=== PATIENT | male | born 1995 | race African-American/Black ===

== ENCOUNTER 2017-08-15 14:17 | Inpatient (IN) ==
[2017-08-15] MEDS ORDERED: DIPH/TET/ACEL PERT BOOSTER VACCINE 0.5 ML VIAL IM ONE ×2 (14:20→14:43)
[2017-08-15 14:39] LABS: Basophils # 0.1 10*3/uL (0.0-0.2); Basophils % 0.5 % (0.0-0.8); Eosinophils # 0.3 10*3/uL (0.0-0.87); Eosinophils % 2.1 % (0.00-10.9); Hematocrit 46.9 VOL% (42.0-52.0); Hemoglobin 15.7 GM/DL (14.0-18.0); Immature Granulocytes % 0.8 %; Immature Granulocytes Absolute 0.11 #; Lymphocytes # 5.2 10*3/uL (1.4-4.0); Lymphocytes % 38.8 % (21.2-54.2); Mean Corpuscular HGB Conc 33.5 GM/DL (32-36); Mean Corpuscular Hemoglobin 29 PG (27-34); Mean Corpuscular Volume 85.3 FL (87-102); Mean Platelet Volume 11.7 FL (9.6-12.0); Monocytes # 0.9 10*3/uL (0.11-0.8); Monocytes % 6.9 % (1.7-12.7); Neutrophils # 6.8 10*3/uL (1.4-7.4); Neutrophils % 50.9 % (38.7-73.9); Platelet Count 216 T/CUMM (130-400); Red Cell Distribution Width 13.8 % (9.3-17.3); White Blood Count 13.3 T/CUMM (4-12)
[2017-08-15] MEDS ORDERED: ceFAZolin 1,000 MG VIAL ONE (14:43)
[2017-08-15 14:45] LABS: PT Patient Result 10.5 SECS; Partial Thromboplastin Time 22.6 SECS (0-40)
[2017-08-15 14:54] LABS: Alanine Aminotransferase 95 U/L (16-61); Alkaline Phosphatase 63 U/L (45-117); Apearance,Urine CLOUDY (Clear); Aspartate Amino Transferase 52 U/L (0-37); Bilirubin,Total < 0.39 MG/DL (0.2-1.0); Bilirubin,Urine Negative (Negative); Blood, Urine Large mg/dL (Negative); Calcium 8.5 MG/DL (8.5-10.1); Glucose,Urine (UA) 50 mg/dL (Negative); Ketones,Urine 5 mg/dL (Negative); Nitrite,Urine Negative (Negative); Protein,Urine >=500 MG/DL; RBC,Urine 3290 /HPF (0-4); Urine Color Red (Yellow); Urine Specific Gravity 1.023 (1.001-1.035); Urine Urobilinogen < 2.0 EU/DL (0.2-1.0)
[2017-08-15 14:55] LABS: Amylase 34 U/L (25-115); Blood Urea Nitrogen 9 MG/DL (7-18); Glucose 165 MG/DL (74-106); Osmolality,Calculated 281.4 MOS/KG (273-304); Potassium 2.9 MMOL/L (3.5-5.1); Sodium 140 MMOL/L (136-145)
[2017-08-15 14:58] LABS: Barbiturates Screen,Urine Negative (Negative); Benzodiazepines Screen,Urine Negative (Negative); Cannabinoid Screen,Urine Positive (Negative); Lactic Acid 3.4 MMOL/L (0.4-2.0); Opiate Screen,Urine Negative (Negative); Phencyclidine Screen,Urine Negative (Negative)
[2017-08-15 15:10] LABS: ABG Base Excess -1.9 MMOL/L (-2.5-2.5); ABG HCO3 22.9 MMOL/L (20-26); ABG PCO2 35.3 MM HG (35-48); ABG PH 7.406 (7.35-7.45); ABG TCO2 19.1 MMOL/L (23-27); Glucose Heart Surgery 126 MG/DL (74-106); Hematocrit Heart Surgery 42.3 PERCENT (42-52); Hemoglobin Heart Surgery 13.8 G/DL (14.0-18.0); PCO2 Patient Temp Arterial 35.3 MMHG; PH Patient Temp Arterial 7.406; Patient Temperature 37 CELCIUS; Potassium Heart/CVR 3.2 MMOL/L (3.5-5.1); Sodium Heart/CVR 139 MMOL/L (135-145)
[2017-08-15] MEDS ORDERED: MICROFIBRILLAR COLLAGEN POWDER 1 GM CAN TOP ONE (15:20)
[2017-08-15] MEDS ORDERED: HYDROmorphone 2 MG/1 ML VIAL IV PRN (16:22)
[2017-08-15] MEDS ORDERED: MIDAZOLAM 2 MG/2 ML VIAL ONE (16:48)
[2017-08-15] MEDS ORDERED: GLYCOPYRROLATE 0.4 MG/2 ML VIAL ONE (16:48)
[2017-08-15] MEDS ORDERED: fentaNYL 100 MCG/2 ML VIAL ONE (16:48)
[2017-08-15] MEDS ORDERED: SEVOFLURANE 1 UNIT/15 MINUTE INH ONE (16:48)
[2017-08-15] MEDS ORDERED: ETOMIDATE 40 MG/20 ML VIAL IV ONE (16:48)
[2017-08-15] MEDS ORDERED: PROPOFOL 200 MG/20 ML VIAL IV ONE (16:48)
[2017-08-15] MEDS ORDERED: LACTATED RINGERS 1,000 ML IV ONE (16:49)
[2017-08-15] MEDS ORDERED: NEOSTIGMINE 10 MG/10 ML VIAL ONE (16:49)
[2017-08-15] MEDS ORDERED: ROCURONIUM 100 MG/10 ML VIAL IV ONE (16:49)
[2017-08-15] MEDS ORDERED: SODIUM CHLORIDE 0.9% 1,000 ML IV ONE (16:49)
[2017-08-15 16:59] LABS: Hematocrit 42.9 VOL% (42.0-52.0); Hemoglobin 14.6 GM/DL (14.0-18.0)
[2017-08-15] MEDS ORDERED: ONDANSETRON 4 MG/2 ML VIAL IV PRN (17:05)
[2017-08-15] MEDS ORDERED: HYDROmorphone 2 MG/1 ML VIAL ONE (17:08)
[2017-08-15] MEDS ORDERED: ONDANSETRON 4 MG/2 ML VIAL ONE (17:08)
[2017-08-15] MEDS: HYDROmorphone 2 MG/1 ML VIAL IV PRN ×4 (17:08→17:23)
[2017-08-15] MEDS ORDERED: MEPERIDINE 25 MG/1 ML VIAL IV ONE (17:40)
[2017-08-15] MEDS ORDERED: MEPERIDINE 25 MG/1 ML VIAL ONE (17:40)
[2017-08-15] MEDS: DEXTROSE 5% LACTATED RINGERS 1,000 ML IV SCH (18:35)
[2017-08-15] MEDS: ONDANSETRON 4 MG/2 ML VIAL IV PRN (19:15)
[2017-08-15] MEDS ORDERED: PROMETHAZINE INJ 25 MG in SODIUM CHLORIDE 0.9% 50 ML IV PRN (21:38)
[2017-08-15] MEDS: MORPHINE 2 MG/1 ML SYRINGE IV PRN (22:09)
[2017-08-16 01:01] LABS: Hematocrit 42.7 VOL% (42.0-52.0); Hemoglobin 14.4 GM/DL (14.0-18.0)
[2017-08-16] MEDS: MORPHINE 2 MG/1 ML SYRINGE IV PRN ×8 (01:10→22:27)
[2017-08-16] MEDS: DEXTROSE 5% LACTATED RINGERS 1,000 ML IV SCH ×3 (02:50→19:11)
[2017-08-16 04:47] LABS: Basophils % 0.1 % (0.0-0.8); Hematocrit 42.1 VOL% (42.0-52.0); Hemoglobin 14.7 GM/DL (14.0-18.0); Immature Granulocytes % 0.5 %; Immature Granulocytes Absolute 0.09 #; Lymphocytes # 0.7 10*3/uL (1.4-4.0); Lymphocytes % 4.1 % (21.2-54.2); Mean Corpuscular HGB Conc 34.9 GM/DL (32-36); Mean Corpuscular Hemoglobin 29 PG (27-34); Mean Platelet Volume 11.9 FL (9.6-12.0); Neutrophils # 15.1 10*3/uL (1.4-7.4); Neutrophils % 89.3 % (38.7-73.9); Platelet Count 157 T/CUMM (130-400); Red Blood Count 5.07 MC/CUMM (3.8-5.5); Red Cell Distribution Width 13.9 % (9.3-17.3); White Blood Count 16.9 T/CUMM (4-12)
[2017-08-16 05:22] LABS: Band Neutrophils 4 % (0-10); Lymphocytes 1 % (20-55); Segmented Neutrophils 88 % (50-85); Total Cells Counted 100
[2017-08-16 05:23] LABS: Giant Platelets Few; Hypochromasia Slight; Platelet Estimate Normal
[2017-08-16 05:35] LABS: Calcium 8.6 MG/DL (8.5-10.1); Osmolality,Calculated 280.3 MOS/KG (273-304); Potassium 4.1 MMOL/L (3.5-5.1)
[2017-08-16] MEDS: PANTOPRAZOLE 40 MG TABLET PO SCH (08:24)
[2017-08-16] MEDS: ONDANSETRON 4 MG/2 ML VIAL IV PRN (08:43)
[2017-08-16 08:50] LABS: Hematocrit 44.7 VOL% (42.0-52.0)
[2017-08-17] MEDS: MORPHINE 2 MG/1 ML SYRINGE IV PRN ×5 (01:54→21:34)
[2017-08-17] MEDS: DEXTROSE 5% LACTATED RINGERS 1,000 ML IV SCH ×3 (05:01→20:00)
[2017-08-17 05:10] LABS: Basophils % 0.1 % (0.0-0.8); Eosinophils % 0.2 % (0.00-10.9); Hematocrit 41.2 VOL% (42.0-52.0); Hemoglobin 14.3 GM/DL (14.0-18.0); Immature Granulocytes % 0.5 %; Immature Granulocytes Absolute 0.06 #; Lymphocytes # 0.9 10*3/uL (1.4-4.0); Mean Corpuscular HGB Conc 34.7 GM/DL (32-36); Mean Corpuscular Hemoglobin 29 PG (27-34); Mean Corpuscular Volume 84.1 FL (87-102); Mean Platelet Volume 12.1 FL (9.6-12.0); Monocytes # 1.1 10*3/uL (0.11-0.8); Monocytes % 8.4 % (1.7-12.7); Neutrophils # 11.1 10*3/uL (1.4-7.4); Neutrophils % 83.8 % (38.7-73.9); Platelet Count 139 T/CUMM (130-400); Red Cell Distribution Width 13.9 % (9.3-17.3); White Blood Count 13.2 T/CUMM (4-12)
[2017-08-17 05:43] LABS: Calcium 8.7 MG/DL (8.5-10.1); Osmolality,Calculated 279.3 MOS/KG (273-304); Potassium 3.9 MMOL/L (3.5-5.1)
[2017-08-17] MEDS: PANTOPRAZOLE 40 MG TABLET PO SCH (08:24)
[2017-08-17] MEDS: ONDANSETRON 4 MG/2 ML VIAL IV PRN ×2 (11:07→21:32)
[2017-08-18] MEDS: MORPHINE 2 MG/1 ML SYRINGE IV PRN ×4 (00:16→22:07)
[2017-08-18] MEDS: DEXTROSE 5% LACTATED RINGERS 1,000 ML IV SCH ×3 (00:22→20:35)
[2017-08-18 02:44] LABS: Basophils % 0.2 % (0.0-0.8); Eosinophils % 0.2 % (0.00-10.9); Hematocrit 40.6 VOL% (42.0-52.0); Hemoglobin 14.1 GM/DL (14.0-18.0); Immature Granulocytes % 0.3 %; Immature Granulocytes Absolute 0.04 #; Lymphocytes # 1.4 10*3/uL (1.4-4.0); Lymphocytes % 10.6 % (21.2-54.2); Mean Corpuscular HGB Conc 34.7 GM/DL (32-36); Mean Corpuscular Hemoglobin 29 PG (27-34); Mean Corpuscular Volume 84.1 FL (87-102); Mean Platelet Volume 12.2 FL (9.6-12.0); Monocytes # 1.1 10*3/uL (0.11-0.8); Monocytes % 8.7 % (1.7-12.7); Neutrophils # 10.2 10*3/uL (1.4-7.4); Platelet Count 139 T/CUMM (130-400); Red Blood Count 4.83 MC/CUMM (3.8-5.5); Red Cell Distribution Width 13.4 % (9.3-17.3); White Blood Count 12.7 T/CUMM (4-12)
[2017-08-18 05:07] LABS: Calcium 8.5 MG/DL (8.5-10.1); Osmolality,Calculated 280.3 MOS/KG (273-304)
[2017-08-18] MEDS: ONDANSETRON 4 MG/2 ML VIAL IV PRN ×3 (05:51→22:14)
[2017-08-18] MEDS: PANTOPRAZOLE 40 MG TABLET PO SCH (09:38)
[2017-08-19] MEDS: ONDANSETRON 4 MG/2 ML VIAL IV PRN ×2 (03:22→12:39)
[2017-08-19] MEDS: MORPHINE 2 MG/1 ML SYRINGE IV PRN ×2 (03:24→16:17)
[2017-08-19 03:50] LABS: Basophils % 0.4 % (0.0-0.8); Eosinophils # 0.2 10*3/uL (0.0-0.87); Eosinophils % 2.1 % (0.00-10.9); Hemoglobin 14.1 GM/DL (14.0-18.0); Immature Granulocytes % 0.2 %; Immature Granulocytes Absolute 0.02 #; Lymphocytes % 23.2 % (21.2-54.2); Mean Corpuscular HGB Conc 34.4 GM/DL (32-36); Mean Corpuscular Hemoglobin 29 PG (27-34); Mean Platelet Volume 12.2 FL (9.6-12.0); Monocytes # 0.8 10*3/uL (0.11-0.8); Neutrophils # 5.5 10*3/uL (1.4-7.4); Neutrophils % 65.1 % (38.7-73.9); Platelet Count 156 T/CUMM (130-400); Red Blood Count 4.94 MC/CUMM (3.8-5.5); Red Cell Distribution Width 13.1 % (9.3-17.3); White Blood Count 8.5 T/CUMM (4-12)
[2017-08-19 04:25] LABS: Calcium 8.7 MG/DL (8.5-10.1); Potassium 3.5 MMOL/L (3.5-5.1)
[2017-08-19] MEDS: DEXTROSE 5% LACTATED RINGERS 1,000 ML IV SCH (05:45)
[2017-08-19] MEDS: PANTOPRAZOLE 40 MG TABLET PO SCH (08:18)
[2017-08-20] MEDS: ONDANSETRON 4 MG/2 ML VIAL IV PRN ×3 (00:31→13:47)
[2017-08-20] MEDS: MORPHINE 2 MG/1 ML SYRINGE IV PRN ×4 (00:35→22:38)
[2017-08-20] MEDS: PANTOPRAZOLE 40 MG TABLET PO SCH (10:15)
[2017-08-20] MEDS ORDERED: LIDOCAINE 1%/EPI INJ 20 ML VIAL ONE (11:21)
[2017-08-20] MEDS ORDERED: BUPIVACAINE MPF 0.25% /EPI 30 ML VIAL ONE (11:21)
[2017-08-20] MEDS ORDERED: LACTATED RINGERS 1,000 ML IV SCH (12:00)
[2017-08-20] MEDS ORDERED: ceFAZolin 1,000 MG VIAL ONE (12:04)
[2017-08-20] MEDS ORDERED: MIDAZOLAM 2 MG/2 ML VIAL ONE (12:34)
[2017-08-20] MEDS ORDERED: fentaNYL 100 MCG/2 ML VIAL ONE (12:35)
[2017-08-20] MEDS ORDERED: PROPOFOL 200 MG/20 ML VIAL IV ONE (12:35)
[2017-08-20] MEDS ORDERED: KETAMINE 500 MG/10 ML VIAL ONE (12:36)
[2017-08-20] MEDS ORDERED: ONDANSETRON 4 MG/2 ML VIAL ONE (12:36)
[2017-08-20] MEDS: DEXTROSE 5% LACTATED RINGERS 1,000 ML IV SCH (19:45)
[2017-08-21] MEDS: MORPHINE 2 MG/1 ML SYRINGE IV PRN (06:31)
[2017-08-21] MEDS: PANTOPRAZOLE 40 MG TABLET PO SCH (08:44)
[2017-08-21] MEDS: ONDANSETRON 4 MG/2 ML VIAL IV PRN (10:44)
[2017-08-21 11:02] VITALS: BP 134/83
[2017-08-21] MEDS ORDERED: MORPHINE 2 MG/1 ML SYRINGE IV PRN (11:45)
== END 2017-08-21 14:10 | disposition home or self-care (01) | DRG 983 ==
LOC: EDUNIT# → EDBD → N.ED 14:17 → N.ICU 14:46 → N.EDINP 16:22 → N.ICU 18:30 → N.3E 08-16 17:55
PROVIDERS: ADMIT Surgery; ATTEND Surgery